=== PATIENT | male | born 1960 | race Caucasian/White ===

== ENCOUNTER 2016-06-24 07:18 | Day surgery (SDC) | payer BC ==
[~2016-06-24] VITALS: Ht 172.7 cm; Wt 82.6 kg
[~2016-06-24 07:18] MED LIST: DICLOFENAC75 MG PO; HYDROCODONE/ACE1 TAB PO; METHOCARBAM750 MG PO; PROAIR HFA IN; [UNRECOGNIZED DRUG - OTHER]
[2016-06-24] MEDS ORDERED: HYDROCODONE/ACE1 TAB PO (09:33)
[2016-06-24 13:28] VITALS: BP 150/98
== END 2016-06-24 10:20 | disposition home or self-care (01) | DRG 552 ==
LOC: ORM 07:18
PROVIDERS: ATTEND Anesthesiology Pain Medicine
PROC: 3E0U33Z Introduction of Anti-inflammatory into Joints, Percutaneous Approach (ICD-10-PCS; principal; 2016-06-24)
PROC: 3E0U3BZ Introduction of Anesthetic Agent into Joints, Percutaneous Approach (ICD-10-PCS; 2016-06-24)
DX: M47.812 Spondylosis without myelopathy or radiculopathy, cervical region (principal); M54.2 Cervicalgia; M53.82 Other specified dorsopathies, cervical region

== ENCOUNTER 2016-07-08 06:07 | Day surgery (SDC) | payer BC | END 2016-07-08 07:00 | disposition home or self-care (01) | DRG 552 | LOC: ORM 06:07 | PROVIDERS: ATTEND Anesthesiology Pain Medicine | DX: M47.812 Spondylosis without myelopathy or radiculopathy, cervical region (principal); M53.82 Other specified dorsopathies, cervical region; Z53.8 Procedure and treatment not carried out for other reasons ==

== ENCOUNTER 2016-07-15 06:12 | Day surgery (SDC) | payer BC ==
[2016-07-15] MEDS ORDERED: PERCOCET1 TA4 PO (07:53)
[2016-07-15 10:04] VITALS: BP 133/89
== END 2016-07-15 08:20 | disposition home or self-care (01) | DRG 552 ==
LOC: ORM 06:12
PROVIDERS: ATTEND Anesthesiology Pain Medicine
PROC: 3E0U33Z Introduction of Anti-inflammatory into Joints, Percutaneous Approach (ICD-10-PCS; principal; 2016-07-15)
PROC: 3E0U3BZ Introduction of Anesthetic Agent into Joints, Percutaneous Approach (ICD-10-PCS; 2016-07-15)
DX: M54.2 Cervicalgia (principal)

== ENCOUNTER → 2016-09-18 | Day surgery (SDC) | payer BC ==
[~2016-09-18] MED LIST changes: +PERCOCET1 TA4 PO
== END | disposition home or self-care (01) | DRG 951 ==
LOC: ENDO 08-07 09:45
PROVIDERS: ATTEND Internal Medicine Gastroenterology
DX: Z12.11 Encounter for screening for malignant neoplasm of colon (principal); Z53.09 Procedure and treatment not carried out because of other contraindication

== ENCOUNTER 2016-10-03 20:46 | Emergency (ER) | payer OTHER, BC ==
[~2016-10-03] VITALS: Ht 172.7 cm; Wt 79.4 kg
[2016-10-04 00:08] VITALS: BP 136/84
[2016-10-06] MEDS ORDERED: PERCOCET1 TA2 PO (09:00)
== END 2016-10-04 00:09 | disposition home or self-care (01) | DRG 93 ==
LOC: ED 20:46
DX: G89.29 Other chronic pain (principal); M54.5 Low back pain; M54.17 Radiculopathy, lumbosacral region; X50.0XXA Overexertion from strenuous movement or load, initial encounter; Y93.89 Activity, other specified; Y92.89 Other specified places as the place of occurrence of the external cause; Y99.9 Unspecified external cause status